=== PATIENT | female | born 1960 | race Caucasian/White ===

== ENCOUNTER 2018-10-20 00:13 | Emergency (ER) | payer MEDICAID ==
[~2018-10-20] VITALS: Ht 172.7 cm; Wt 68.0 kg
[2018-10-20] MEDS ORDERED: SODIUM CHLORIDE 0.9% 1,000 ML IV ONE ×2 (06:55→13:30)
[2018-10-20 07:29] LABS: CLARITY URINE CLOUDY (CLEAR); COLOR URINE YELLOW (YELLOW); KETONES URINE NEGATIVE (NEGATIVE); LEUKOCYTE ESTERASE URINE 3+ (NEGATIVE); NITRITE URINE NEGATIVE (NEGATIVE); OCCULT BLOOD URINE 1+ (NEGATIVE); PH URINE 5.5 (4.5-8.0); PROTEIN URINE NEGATIVE (NEGATIVE); SPECIFIC GRAVITY URINE 1.011 (1.005-1.030); UROBILINOGEN URINE 0.2 E.U./dL (0.2-1.0)
[2018-10-20 07:55] LABS: *AMPHETAMINES SCREEN URINE PRESUMTIVE POSITIVE (NEGATIVE); *BARBITURATES SCREEN URINE NEGATIVE (NEGATIVE); *BENZODIAZEPINES SCREEN URINE NEGATIVE (NEGATIVE); *COCAINE SCREEN URINE NEGATIVE (NEGATIVE); METHADONE URINE SCREEN NEGATIVE (NEGATIVE); OPIATES URINE SCREEN NEGATIVE (NEGATIVE)
[2018-10-20 07:56] LABS: CANNABINOID URINE SCREEN PRESUMTIVE POSITIVE (NEGATIVE); PHENCYCLIDINE URINE SCREEN NEGATIVE (NEGATIVE)
[2018-10-20 08:49] LABS: BASOPHILS % 0.9 % (0.0-2.0); EOSINOPHILS % 1.1 % (0.0-5.0); HEMATOCRIT. 36.4 % (36.0-48.0); HEMOGLOBIN. 12.3 g/dL (12.0-16.0); LYMPHOCYTES % 35.9 % (20.0-50.0); MEAN CORPUSCULAR HEMOGLOBIN 28.8 pg (28.0-32.0); MEAN CORPUSCULAR VOLUME 85.7 fL (81.0-99.0); MEAN PLATELET VOLUME 7.1 fl (7.4-10.4); MONOCYTES % 7.7 % (2.0-8.0); NEUTROPHILS % 54.4 % (40.0-76.0); PLATELET 245 x1000/uL (130-400); RED BLOOD CELL COUNT 4.25 mill/uL (4.2-5.4); RED CELL DISTRIBUTION WIDTH 16.7 % (11.6-14.6)
[2018-10-20 08:51] LABS: CHLORIDE 109 mEq/L (98-107)
[2018-10-20 08:56] LABS: ETHANOL BLOOD 91 mg/dL
[2018-10-20] MEDS ORDERED: CEPHALEXIN 250MG CAPSULE PO ONE (10:00)
[2018-10-20] MEDS ORDERED: CHLORDIAZEPOXIDE 25MG CAPSULE PO ONE (11:00)
[2018-10-21 10:43] VITALS: BP 122/76
== END 2018-10-21 10:44 | disposition home or self-care (01) ==
LOC: EDBD 00:13 → ER 00:30
DX: F10.129 Alcohol abuse with intoxication, unspecified (principal); Y90.4 Blood alcohol level of 80-99 mg/100 ml; N39.0 Urinary tract infection, site not specified; Z59.0 Homelessness
CPT/HCPCS: 36415; 80053; 80305; 80320; 81003; 82962; 85025; 87086; 99283; J7030; Z7610; G0480

== ENCOUNTER 2018-10-25 15:09 | Emergency (ER) | payer MEDICAID ==
[~2018-10-25] VITALS: Ht 172.7 cm; Wt 68.0 kg
[2018-10-25] MEDS ORDERED: FOLIC ACID 1 MG, THIAMINE HCL 100 MG, MVI, ADULT NO.1 10 ML in DEXTROSE 5% WATER 1,000 ML IV ONE ×4 (17:15)
[2018-10-25 17:44] LABS: BASOPHILS % 1.3 % (0.0-2.0); HEMATOCRIT. 40.3 % (36.0-48.0); HEMOGLOBIN. 13.7 g/dL (12.0-16.0); LYMPHOCYTES % 29.5 % (20.0-50.0); MEAN CORPUSCULAR HEMOGLOBIN 29.5 pg (28.0-32.0); MEAN PLATELET VOLUME 7.1 fl (7.4-10.4); MONOCYTES % 6.6 % (2.0-8.0); NEUTROPHILS % 58.6 % (40.0-76.0); PLATELET 250 x1000/uL (130-400); RED BLOOD CELL COUNT 4.63 mill/uL (4.2-5.4); RED CELL DISTRIBUTION WIDTH 16.9 % (11.6-14.6)
[2018-10-25 17:52] LABS: CHLORIDE 104 mEq/L (98-107)
[2018-10-25 17:57] LABS: ETHANOL BLOOD 295 mg/dL
[2018-10-25 20:56] LABS: CLARITY URINE CLEAR (CLEAR); COLOR URINE YELLOW (YELLOW); KETONES URINE NEGATIVE (NEGATIVE); LEUKOCYTE ESTERASE URINE 2+ (NEGATIVE); NITRITE URINE NEGATIVE (NEGATIVE); OCCULT BLOOD URINE NEGATIVE (NEGATIVE); PROTEIN URINE NEGATIVE (NEGATIVE); SPECIFIC GRAVITY URINE 1.007 (1.005-1.030); UROBILINOGEN URINE 0.2 E.U./dL (0.2-1.0)
[2018-10-25 21:19] LABS: *AMPHETAMINES SCREEN URINE PRESUMTIVE POSITIVE (NEGATIVE); *BARBITURATES SCREEN URINE NEGATIVE (NEGATIVE); *BENZODIAZEPINES SCREEN URINE PRESUMTIVE POSITIVE (NEGATIVE); *COCAINE SCREEN URINE NEGATIVE (NEGATIVE)
[2018-10-25 21:20] LABS: CANNABINOID URINE SCREEN NEGATIVE (NEGATIVE); METHADONE URINE SCREEN NEGATIVE (NEGATIVE); OPIATES URINE SCREEN NEGATIVE (NEGATIVE); PHENCYCLIDINE URINE SCREEN NEGATIVE (NEGATIVE)
[2018-10-25] MEDS ORDERED: CEFTRIAXONE 1 G PREMIX 50 ML IV ONE (23:15)
[2018-10-26] MEDS ORDERED: CHLORDIAZEPOXIDE 25MG CAPSULE PO ONE (10:45)
[2018-10-27 02:47] VITALS: BP 166/104
== END 2018-10-27 07:52 | disposition left against medical advice (07) ==
LOC: ER 15:09
DX: F10.129 Alcohol abuse with intoxication, unspecified (principal); T43.621A Poisoning by amphetamines, accidental (unintentional), initial encounter; E86.0 Dehydration; N39.0 Urinary tract infection, site not specified; F17.210 Nicotine dependence, cigarettes, uncomplicated; Y92.9 Unspecified place or not applicable; Z59.0 Homelessness; Z71.6 Tobacco abuse counseling; Z98.890 Other specified postprocedural states; Y90.4 Blood alcohol level of 80-99 mg/100 ml
CPT/HCPCS: 36415; 70450; 80053; 80305; 80307; 80320; 80329; 81003; 85025; 96365; 96366; 96367; 99284; 99406; J0696; J3411; J3490; J7070; Z7610; A4315; G0480